=== PATIENT | male | born 1990 | race Caucasian/White ===

== ENCOUNTER 2017-07-01 18:21 | Emergency (ER) | payer MEDICAID ==
[2017-07-01 18:47] LABS: % BASOPHILS 0.9 % (0.0-2.0); % EOSINOPHILS 2.3 % (0.0-5.0); % LYMPHOCYTES 31.7 % (20.0-50.0); % MONOCYTES 6.8 % (2.0-10.0); % NEUTROPHILS 58.3 % (40.0-80.0); BASOPHILE ABSOLUTE 0.1 Th/cumm (0-0.2); EOSINOPHILE ABSOLUTE 0.1 Th/cmm (0.1-0.4); HEMATOCRIT 40.8 % (41.0-60); MEAN CELL VOLUME 91.2 fl (80-99); MEAN CORPUSCULAR HEMOGLOBIN 31.2 pg (26.0-30.0); MEAN CORPUSCULAR HGB CONC 34.2 pg (28.0-36.0); MEAN PLATELET VOLUME 7.5 fl; MONOCYTE ABSOLUTE 0.4 Th/cmm (0.3-1.0); NEUTROPHILE ABSOLUTE 3.6 Th/cmm (1.8-8.0); PLATELET COUNT 275 Th/cmm (150-400); RED BLOOD COUNT 4.48 Mil/cmm (4.30-5.70); RED CELL DISTRIBUTION WIDTH 12.2 % (11.5-20.0); WHITE BLOOD COUNT 6.2 Th/cmm (4.8-10.8)
[2017-07-01 19:04] LABS: ALB/GLOB RATIO 1.2 (1.0-1.8); ALBUMIN 4.2 gm/dL (4.2-5.5); ALKALINE PHOSPHATASE 79 U/L (34-104); ANION GAP 11.6 (7.0-16.0); BILIRUBIN,TOTAL 0.3 mg/dL (0.3-1.0); BUN - UREA NITROGEN 16 mg/dL (7-25); CALCIUM SERUM 9.3 mg/dL (8.6-10.3); CARBON DIOXIDE 26.1 mEq/L (21.0-31.0); CHLORIDE 106 mEq/L (98-107); CHOLESTEROL 151 mg/dL (<200); CREATININE - SERUM 0.8 mg/dL (0.7-1.3); GFR AFRICAN-AMERICAN > 60.0 ml/min (>90); GFR NON AFRICAN-AMERICAN > 60.0 ml/min; GLUCOSE 88 mg/dL (70-105); HDL -HIGH DENSITY LIPOPROTEIN 37 mg/dL (23-92); POTASSIUM SERUM 3.7 mEq/L (3.5-5.1); SGOT 16 U/L (13-39); SGPT/ALT 21 U/L (7-52); SODIUM SERUM 140 mEq/L (136-145); TOTAL PROTEIN,SERUM 7.7 gm/dL (6.0-8.3); TRIGLYCERIDES 157 mg/dL (<150)
--- NOTE | 2017-07-01 19:08 | ED Physician Chart ---
ED Chief Complaint/HPI - Patient Information Date Seen:: 07/01/17 Time Seen:: 19:01 Chief Complaint:: Chest wall pain History of Present Illness:: 27 yo male had right chest wall after a fall when playing soccer 5 days ago. Last night, he felt the pain radiating to the back. The pain would be worsened by taking deep breath. ED Review of Systems - Review of Systems General/Constitutional: No fever Skin: No rash Head: No headache Eyes: No pain ENT: No nasal drainage Neck: No neck pain Cardio Vascular: Chest pain Pulmonary: No SOB GI: No nausea, No vomiting Musculoskeletal: Other (right chest wall pain) Neurological: No focal symptoms ED Past Medical History - Past Medical History Past Medical History: No significant medical hx Social History: Non Smoker, Alcohol, No Drug Use Surgical History: None ED Physical Exam - Physical Examination General/Constitutional: Awake Head: Atraumatic Eyes: PERRL Skin: No skin lesions ENMT: Nasal exam nl Neck: No nuchal rigidity Other Respiratory comments:: Right anterior and lateral chest wall tenderness Cardio Vascular: RRR, No murmur, gallop, rubs, NL S1 S2 GI: No tenderness/rebounding/guarding Extremities: normal strength in all extremities Neuro/Psych: No focal deficits ED Labs/Radiology/EKG Results - Lab Results Results: Laboratory Tests 07/01/17 18:38 WBC 6.2 RBC 4.48 Hgb 14.0 Hct 40.8 L MCV 91.2 MCH 31.2 H MCHC Differential 34.2 RDW 12.2 Plt Count 275 MPV 7.5 Neutrophils % 58.3 Lymphocytes % 31.7 Monocytes % 6.8 Eosinophils % 2.3 Basophils % 0.9 Laboratory Last Values WBC 6.2 Th/cmm (4.8-10.8) 07/01/17 18:38 RBC 4.48 Mil/cmm (4.30-5.70) 07/01/17 18:38 Hgb 14.0 gm/dL (12-16) 07/01/17 18:38 Hct 40.8 % (41.0-60) L 07/01/17 18:38 MCV 91.2 fl (80-99) 07/01/17 18:38 MCH 31.2 pg (26.0-30.0) H 07/01/17 18:38 MCHC Differential 34.2 pg (28.0-36.0) 07/01/17 18:38 RDW 12.2 % (11.5-20.0) 07/01/17 18:38 Plt Count 275 Th/cmm (150-400) 07/01/17 18:38 MPV 7.5 fl 07/01/17 18:38 Neutrophils % 58.3 % (40.0-80.0) 07/01/17 18:38 Lymphocytes % 31.7 % (20.0-50.0) 07/01/17 18:38 Monocytes % 6.8 % (2.0-10.0) 07/01/17 18:38 Eosinophils % 2.3 % (0.0-5.0) 07/01/17 18:38 Basophils % 0.9 % (0.0-2.0) 07/01/17 18:38 Sodium 140 mEq/L (136-145) 07/01/17 18:38 Potassium 3.7 mEq/L (3.5-5.1) 07/01/17 18:38 Chloride 106 mEq/L (98-107) 07/01/17 18:38 Carbon Dioxide 26.1 mEq/L (21.0-31.0) 07/01/17 18:38 Anion Gap 11.6 (7.0-16.0) 07/01/17 18:38 BUN 16 mg/dL (7-25) 07/01/17 18:38 Creatinine 0.8 mg/dL (0.7-1.3) 07/01/17 18:38 Est GFR ( Amer) > 60.0 ml/min (>90) 07/01/17 18:38 Est GFR (Non-Af Amer) > 60.0 ml/min 07/01/17 18:38 BUN/Creatinine Ratio 20.0 07/01/17 18:38 Glucose 88 mg/dL (70-105) 07/01/17 18:38 Calcium 9.3 mg/dL (8.6-10.3) 07/01/17 18:38 Total Bilirubin 0.3 mg/dL (0.3-1.0) 07/01/17 18:38 AST 16 U/L (13-39) 07/01/17 18:38 ALT 21 U/L (7-52) 07/01/17 18:38 Alkaline Phosphatase 79 U/L (34-104) 07/01/17 18:38 Troponin I < 0.01 ng/mL (0.01-0.05) L 07/01/17 18:38 Total Protein 7.7 gm/dL (6.0-8.3) 07/01/17 18:38 Albumin 4.2 gm/dL (4.2-5.5) 07/01/17 18:38 Globulin 3.5 gm/dL 07/01/17 18:38 Albumin/Globulin Ratio 1.2 (1.0-1.8) 07/01/17 18:38 Triglycerides 157 mg/dL (<150) H 07/01/17 18:38 Cholesterol 151 mg/dL (<200) 07/01/17 18:38 LDL Cholesterol Direct 113 mg/dL (75-193) 07/01/17 18:38 HDL Cholesterol 37 mg/dL (23-92) 07/01/17 18:38 TSH 1.52 uIU/ml (0.34-5.60) 07/01/17 18:38 - Radiology Results Results: CT chest: no acute abnormality per preliminary report ED Assessment - Assessment General Assessment: Right chest wall trauma Assessment/Comments:: CT chest: negative Ibuprofen 800mg po D/c home F/u PCP or return to ER if symptoms worsen ED Septic Shock - . Is Septic Shock (SBP<90, OR Lactate>4 mmol\L) present?: No ED Reassessment (Disposition) - Reassessment Reassessment Condition:: Improved - Patient Disposition Discharge/Transfer:: Home ED Discharge Plan - Patient Disposition Admit/Discharge/Transfer: PT DISCHARGED HOME Instructions: Chest Wall Pain, [id number]
--- NOTE | 2017-07-02 09:15 | Diagnostic Imaging Report ---
Chest x-ray single view History: Pain Comparison: None The heart size is normal. No focal pulmonary parenchymal processes. No hilar or mediastinal abnormalities. Impression: No acute abnormalities
--- NOTE | 2017-07-02 09:28 | Diagnostic Imaging Report ---
CT scan of the chest with intravenous contrast History: Trauma Total DLP equals 2 69 CTDI equals 7.2 Axial sections were obtained from a level above the clavicles down to a level below the diaphragm. Exam the mediastinum demonstrates preservation of normal fat planes about the major vascular landmarks. No abnormal masses. Specifically no lymphadenopathy. No abnormal focal pulmonary parenchymal masses or nodules are seen. The hilar regions appear normal. No pleural effusions are seen. Impression: No acute abnormalities
== END 2017-07-01 20:10 | disposition home or self-care (01) ==
LOC: ER 18:21
DX: T14.90XA Injury, unspecified, initial encounter (principal); W19.XXXA Unspecified fall, initial encounter; Y93.66 Activity, soccer; Y92.89 Other specified places as the place of occurrence of the external cause; Y99.8 Other external cause status
CPT/HCPCS: 36415-UA; 71045-TC; 71250-TC; 80053-TC; 80061-TC; 84443-TC; 84484-TC; 85025-TC; 93005

== ENCOUNTER 2017-08-16 12:58 | Emergency (ER) | payer MEDICAID ==
--- NOTE | 2017-08-16 14:10 | ED Physician Chart ---
ED Chief Complaint/HPI - Patient Information Date Seen:: 08/16/17 Time Seen:: 13:10 Chief Complaint:: Right Scrotal Pain History of Present Illness:: onset x 5 days of intermittent, dull, right scrotal/right testicular pain; pt denies trauma, LOC, H/As, S/T, neck pain, cough, C/P, SOB, Abd. 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; pt's last tetanus shot: < 5 years; UTD Allergies:: Allergies Allergy/AdvReac Type Severity Reaction Status Date / Time No Known Allergies Allergy Verified 07/01/17 19:50 Vitals:: Vital Signs - 8 hr 08/16/17 13:18 Temp 97.8 F HR 66 RR 16 BP 123/69 O2 Sat % 98 Historian:: Patient Review:: Nurse's Note Reviewed ED Review of Systems - Review of Systems General/Constitutional: No fever, No chills, No weight loss, No weakness, No diaphoresis, No edema, No loss of appetite Skin: No skin lesions, No rash, No bruising Head: No headache, No light-headedness Eyes: No loss of vision, No pain, No diplopia ENT: No earache, No nasal drainage, No sore throat, No tinnitus Neck: No neck pain, No swelling, No thyromegaly, No stiffness, No mass noted Cardio Vascular: No chest pain, No palpitations, No PND, No orthopnea, No edema Pulmonary: No SOB, No cough, No sputum, No wheezing GI: No nausea, No vomiting, No diarrhea, No pain, No melena, No hematochezia, No constipation, No hematemesis G/U: No dysuria, No frequency, No hematuria, No nacturia Musculoskeletal: No bone or joint pain, No back pain, No muscle pain Endocrine: No polyuria, No polydipsia Psychiatric: No prior psych history, No depression, No anxiety, No suicidal ideation, No homicidal ideation, No auditory hallucination, No visual hallucination Hematopoietic: No bruising, No lymphadenopathy Allergic/Immuno: No urticaria, No angioedema Neurological: No syncope, No focal symptoms, No weakness, No paresthesia, No headache, No seizure, No dizziness, No confusion, No vertigo ED Past Medical History - Past Medical History Obtainable: Yes Past Medical History: No significant medical hx Family History: None Social History: Non Smoker, No Alcohol, No Drug Use, Single, Employed Surgical History: None Psychiatricy History: None Medication: Reviewed ED Physical Exam - Physical Examination General/Constitutional: Awake, Well-developed, well-nourished, Alert, No distress, GCS 15, Non-toxic appearing, Ambulatory Head: Atraumatic Eyes: Lids, conjuctiva normal, PERRL, EOMI Skin: Nl inspection, No rash, No skin lesions, No ecchymosis, Well hydrated, No lymphadenopathy ENMT: External ears, nose nl, TM canals nl, Nasal exam nl, Lips, teeth, gums nl , Oropharynx nl, Tonsils nl Neck: Nontender, Full ROM w/o pain, No JVD, No nuchal rigidity, No bruit, No mass, No stridor Other Neck comments:: supple; no meningeal signs; no cervical tenderness; no bruits Respiratory: Nl effort/Exclusion, Clear to Auscultation, No Wheeze/Rhonchi/Rales Cardio Vascular: RRR, No murmur, gallop, rubs, NL S1 S2, Carotid/Femoral/Distal pulses equal bilaterally GI: No tenderness/rebounding/guarding, No organomegaly, No hernia, Normal BS's, Nondistended, No mass/bruits, No McBurney tenderness, Rectum exam nl Other GI comments:: no pulsatile masses; good BS : No CVA tenderness, NL external genitalia, No discharge Other comments:: + Right Epididymus tenderness; no swelling; no erythema; good NV functions; no cellulitis; no FBs; no wounds Extremities: No tenderness or effusion, Full ROM, normal strength in all extremities, No edema, Normal digits & nails Neuro/Psych: Alert/oriented, DTR's symmetric, Normal sensory exam, Normal motor strength, Judgement/insight normal, Mood normal, Normal gait, No focal deficits Other Neuro/Psych comments:: no focal signs Misc: Normal back, No paraspinal tenderness ED Labs/Radiology/EKG Results - Radiology Results Comments:: U/S: Negative for Testicular Torsion; NAD ED Septic Shock - . Is Septic Shock (SBP<90, OR Lactate>4 mmol\L) present?: No - <6hrs of presentation: Vital Signs: Vital Signs - 8 hr 08/16/17 13:18 Temp 97.8 F HR 66 RR 16 BP 123/69 O2 Sat % 98 ED Reassessment (Disposition) - Reassessment Reassessment:: pt tolerated po fluids well in ER; pt is asymptomatic upon discharge Reassessment Condition:: Improved - Diagnosis Diagnosis:: Dx: Epididymitis; Scrotal Pain- Resolved; Testicular Pain-Resolved - Aftercare/Follow up Instructions Aftercare/Follow-Up Instructions:: Counseled pt regarding lab results/diagnosis & need follow up, Refer to Discharge Instructions, Counseled pt & family regarding lab results/diagnosis & need follow up Medication Prescribed:: Rx: Doxycycline 100mg po bid x 10 days; Tylenol 500mg po qid prn fever/pain; Care Instructions - Patient Disposition Discharge/Transfer:: Home Condition at Disposition:: Stable, Improved (RTER prn if existing s/s reoccur and/or get worse and/or any other new s/s occur; ACIs given for all above Dx; U/ S Care Instructions; Refer to Urologist/Upper Lining Cementer HELEN; F/U with PMD in one day or prn; RTER prn if concerned)
--- NOTE | 2017-08-16 14:54 | Diagnostic Imaging Report ---
Ultrasound scrotum HISTORY: Right testicular pain, rule out torsion COMPARISON: None Technique/procedure: Sonography of the scrotum and contents was performed in multiple planes. FINDINGS: The right testicle measures 3.2 x 2.1 x 4.0 cm and demonstrates normal echogenicity with no evidence of focal lesions. The right epididymal head measures 6 mm. The left testicle measures 3 3.0 x 2.0 x 3.3 cm and demonstrates normal echogenicity with no evidence of focal lesions. The left epididymal head measures 1 cm. Vascular flow to bilateral testicles are noted. Small left hydrocele is noted. IMPRESSION: Vascular flow noted to both testicles. No sonographic evidence of testicular torsion. Clinical correlation recommended. Small left hydrocele.
== END 2017-08-16 14:45 ==
LOC: ER 12:58
DX: N45.1 Epididymitis (principal)
CPT/HCPCS: 76870-TC; Z7502

== ENCOUNTER 2018-04-29 22:01 | Emergency (ER) | payer SELFPAY ==
--- NOTE | 2018-04-29 22:50 | ED Physician Chart ---
ED Chief Complaint/HPI - Patient Information Date Seen:: 04/29/18 Time Seen:: 22:14 Chief Complaint:: right ear pain History of Present Illness:: this is a 27 yr old male with right ear pain and sore throat for treatment. his son has an earache and chest congestion. he denies having a cough. Allergies:: Allergies Allergy/AdvReac Type Severity Reaction Status Date / Time No Known Allergies Allergy Verified 04/29/18 22:19 Vitals:: Vital Signs - 8 hr 04/29/18 22:05 Temp 98.1 F HR 72 RR 18 BP 131/65 O2 Sat % 98 Historian:: Patient Review:: Nurse's Note Reviewed ED Review of Systems - Review of Systems General/Constitutional: No fever, No chills, No weight loss, No weakness, No diaphoresis, No edema, No loss of appetite Skin: No skin lesions, No rash, No bruising Head: No headache, No light-headedness Eyes: No loss of vision, No pain, No diplopia ENT: Earache, No nasal drainage, Sore throat, No tinnitus Neck: No neck pain, No swelling, No thyromegaly, No stiffness, No mass noted Cardio Vascular: No chest pain, No palpitations, No PND, No orthopnea, No edema Pulmonary: No SOB, No cough, No sputum, No wheezing GI: No nausea, No vomiting, No diarrhea, No pain, No melena, No hematochezia, No constipation, No hematemesis G/U: No dysuria, No frequency, No hematuria Musculoskeletal: No bone or joint pain, No back pain, No muscle pain Endocrine: No polyuria, No polydipsia Psychiatric: No prior psych history, No depression, No anxiety, No suicidal ideation Hematopoietic: No bruising, No lymphadenopathy Allergic/Immuno: No urticaria, No angioedema Neurological: No syncope, No focal symptoms, No weakness, No paresthesia, No headache, No seizure, No dizziness, No confusion, No vertigo ED Past Medical History - Past Medical History Obtainable: Yes Past Medical History: No significant medical hx Family History: None Social History: Non Smoker, Alcohol, No Drug Use, , Employed Surgical History: None Psychiatricy History: None Medication: Reviewed Family Medical History - Family Member Mother History Unknown: Yes ED Physical Exam - Physical Examination General/Constitutional: Awake, Well-developed, well-nourished, Alert, No distress, GCS 15, Non-toxic appearing, Ambulatory Head: Atraumatic Eyes: Lids, conjuctiva normal, PERRL, EOMI Skin: Nl inspection, No rash, No skin lesions, No ecchymosis, Well hydrated, No lymphadenopathy ENMT: External ears, nose nl, TM canals nl (the right ear canal is red and swollen, the posterior pharynx is red and swollen.), Nasal exam nl, Lips, teeth , gums nl Neck: Nontender, Full ROM w/o pain, No JVD, No nuchal rigidity, No bruit, No mass, No stridor Respiratory: Nl effort/Exclusion, Clear to Auscultation, No Wheeze/Rhonchi/Rales Cardio Vascular: RRR, No murmur, gallop, rubs, NL S1 S2 GI: No tenderness/rebounding/guarding, No organomegaly, No hernia, Normal BS's, Nondistended, No mass/bruits, No McBurney tenderness : No CVA tenderness Extremities: No tenderness or effusion, Full ROM, normal strength in all extremities, No edema, Normal digits & nails Neuro/Psych: Alert/oriented, DTR's symmetric, Normal sensory exam, Normal motor strength, Judgement/insight normal, Mood normal, Normal gait, No focal deficits Misc: Normal back, No paraspinal tenderness ED Assessment - Assessment General Assessment: acute pharyngitis acute right otitis media ED Septic Shock - . Is Septic Shock (SBP<90, OR Lactate>4 mmol\L) present?: No - <6hrs of presentation: Vital Signs: Vital Signs - 8 hr 04/29/18 22:05 Temp 98.1 F HR 72 RR 18 BP 131/65 O2 Sat % 98 ED Reassessment (Disposition) - Reassessment Reassessment Condition:: Unchanged - Aftercare/Follow up Instructions Aftercare/Follow-Up Instructions:: Counseled pt regarding lab results/diagnosis & need follow up, Refer to Discharge Instructions, Counseled pt & family regarding lab results/diagnosis & need follow up Medication Prescribed:: z-anna, prednisone - Patient Disposition Discharge/Transfer:: Home Condition at Disposition:: Unchanged
== END 2018-04-29 23:15 | disposition home or self-care (01) ==
LOC: ER 22:01
DX: H66.91 Otitis media, unspecified, right ear (principal); J02.9 Acute pharyngitis, unspecified
CPT/HCPCS: J0696; J2001; Z7502